=== PATIENT | male | born 1990 | race Caucasian/White ===

== ENCOUNTER → 2022-07-27 11:03 | Outpatient (CLI) | payer BC, SELFPAY ==
[2022-07-27 12:04] LABS: COVID19 -Nasal RAPID Negative (Negative)
== END ==
PROVIDERS: Visit Provider Surgery
DX: Z20.822 Contact with and (suspected) exposure to COVID-19 (principal); Z01.812 Encounter for preprocedural laboratory examination
CPT/HCPCS: 87635; C9803

== ENCOUNTER 2022-07-28 07:57 | Day surgery (SDC) | payer BC, SELFPAY ==
--- NOTE | 2022-07-28 | PATH_ITS ---
[facility] Accession Number: [id number] . 01 Material submitted: . esophagus - G-LINE . 01 Clinical history: . EGD W/POSS BX IRREGULAR G-LINE, R/O SILVA'S . 01 Diagnosis: Gastroesophageal Junction, Biopsy: Squamocolumnar junctional mucosa with specialized intestinal metaplasia, consistent with Silva's esophagus. Negative for dysplasia and malignancy. MRV 07/29/2022 0933 Local . 01 Electronically signed: . Jony Delarosa MD, PhD, Pathologist NPI- [id number] . 01 Gross description: . G-LINE: Received in formalin are 3 fragment(s) of siddiqi, soft tissue measuring 0.1 x 0.1 x 0.1 cm to 0.3 x 0.2 x 0.1 cm submitted entirely in 1 cassette(s) /DOMINGA 07/28/2022 2240 Local . 01 Pathologist provided ICD-10: K22.70 . 01 CPT . 941185 Specimen Comment: A courtesy copy of this report has been sent to [phone] Performed at: 01 [facility] [address] [place] [address], [place], [place] [id number] MD Wyatt Champion MD Phone: [phone]
[2022-07-28 08:09] VITALS: BP 134/81; PULSE 71; RESP 16; TEMP 36.5; O2SAT 100; BMI 28.1
[2022-07-28] MEDS: LACTATED RINGERS 1,000 ML 42 ML IV (08:17)
--- NOTE | 2022-07-28 09:16 | PM.HP.1 ---
History of Present Illness History of Present Illness Chief complaint: EGD W/POSS BX Patient History Family & Social History Social History: household members spouse Tobacco & Substance use: Smoking Status Never smoker alcohol intake current alcohol intake frequency a few times a month Substance Use Type does not use Meds Home Medications and Allergies Allergies Allergy/AdvReac Type Severity Reaction Status Date / Time amoxicillin Allergy Verified 07/28/22 08:13 Review of Systems Review of Systems Narrative: Negative Exam Vital Signs (past 8 hours): - 07/28/22 08:09 Temperature 97.7 F Pulse Rate 71 Respiratory Rate 16 Blood Pressure 134/81 Pulse Oximetry 100 Oxygen Delivery Method Room Air Oxygen Delivery Method Room Air Narrative Exam Narrative: Awake alert and oriented x3, pupils equal round reactive to light, oropharynx clear, heart regular rate and rhythm, lungs clear to auscultation bilaterally, abdomen nontender and nondistended, extremities without edema, no gross neurologic deficits noted Assessment & Plan Assessment & Plan narrative: Suspected GERD with persistent symptoms for EGD today Time Spent With Patient Critical Care time: I spent a total of [] minutes of critical care time on this patient's care today; this time is exclusive of procedural time.
--- NOTE | 2022-07-28 09:26 | P.OP.EGD_ITS ---
Operative Date/Time/Diagnoses Date of procedure: 07/28/22 Procedure & Clinicians Study performed: EGD with cold biopsy Indications: Throat irritation, GERD symptoms not responding to therapy Procedure Notes Procedure in detail: Prior to the procedure, history and physical was performed, and patient medications and allergies were reviewed. Preprocedure nursing history and assessment was reviewed. Patient identification and proposed procedure were verified by the physician and nurse in the procedure room. The physical status of the patient was reassessed after the procedure. After informed consent was obtained including risks, benefits, and alternatives, the scope was passed under direct vision. Throughout the procedure, the patient's blood pressure, pulse, and oxygen saturations were monitored continuously. The upper endoscope was introduced through the mouth and advanced to the 2nd portion of the duodenum. Retroflexion was performed in the stomach. The patient tolerated the procedure well. The esophagus was normal except for a 2 cm tongue of salmon-colored mucosa arising from the GE junction. This was biopsied. Proximal extent of salmon-col ored mucosa was 37 cm, GE junction noted at 39 cm. The entire examined stomach was normal appearing The entire examined duodenum was normal appearing Impression: 2 cm segment of salmon-colored mucosa in the distal esophagus concerning for Rice's esophagus. Biopsied. Normal-appearing stomach. Normal-appearing examined duodenum. Post-procedure Plan for aftercare: Follow-up pathology results Resume home medications Resume previous diet Anti-reflux precautions Patient has a contact number available for emergencies. The signs and symptoms of potential delayed complications were discussed with the patient. Return to normal activities tomorrow. Written discharge instructions were provided to the patient. Discharge home with escort
[2022-07-28 09:31] VITALS: BP 98/66; PULSE 80; RESP 20; TEMP 36.1; O2SAT 96
[2022-07-28 09:36] VITALS: BP 107/73; PULSE 61; RESP 20; O2SAT 100
[2022-07-28 09:41] VITALS: BP 109/77; PULSE 58; RESP 16; O2SAT 100
[2022-07-28 09:46] VITALS: BP 116/86; PULSE 57; RESP 16; O2SAT 99
[2022-07-28 10:00] VITALS: BP 110/80; PULSE 58; RESP 16; TEMP 36.2; O2SAT 99
--- NOTE | 2022-07-28 10:02 | SUR.PHASEII ---
Discharge instructions reviewed with pt and he verbalized understanding.
== END 2022-07-28 10:06 | disposition home or self-care (01) ==
PROVIDERS: Referring Provider Internal Medicine; Visit Provider Internal Medicine
PROC: 0DJ08ZZ Inspection of Upper Intestinal Tract, Via Natural or Artificial Opening Endoscopic (ICD-10-PCS; CPT 43235; principal; 2022-07-28 09:00)
DX: K22.70 Barrett's esophagus without dysplasia (principal); J39.2 Other diseases of pharynx
CPT/HCPCS: 43239; J2704; J3010